=== PATIENT | female | born 1950 | race Caucasian/White ===

== ENCOUNTER → 2022-03-23 12:30 | Outpatient (CLI) | payer MEDICARE, SELFPAY ==
--- NOTE | 2022-03-23 13:29 | DI.ECHO.S_ITS ---
Interpretation Summary The left ventricular cavity is small. The ejection fraction is estimated to be 65-70%. The right ventricle is normal in size and function. The aortic valve is moderately calcified. The aortic valve is trileaflet. There is mildly reduced leaflet mobility. The peak aortic velocity is 2.4 m/sec. The aortic valve mean gradient is 13 mmHg. There is mild aortic stenosis. There is mild to moderate aortic regurgitation. There is mild to moderate tricuspid regurgitation. The right ventricular systolic pressure is estimated to be at least 26 mmHg based on an estimated right atrial pressure of 3 mm Hg. Mild atherosclerotic plaque(s) in the aortic arch. Procedure: A two-dimensional transthoracic echocardiogram with color flow and Doppler was performed. The study quality was technically adequate. There is no prior echocardiogram noted for this patient. The patient was in sinus rhythm with heart rates between 67-72 bpm during the exam. Left Ventricle: The left ventricular cavity is small. There is moderate proximal septal thickening noted. There is no echo evidence for significant left ventricular outflow tract obstruction. There is no thrombus. The ejection fraction is estimated to be 65-70%. There are no focal wall motion abnormalities. Diastolic parameters suggest a relaxation abnormality of the left ventricle, consistent with probable normal filling pressures. Right Ventricle: The right ventricle is normal in size and function. Atria: The left atrium is mildly dilated. Right atrial size is normal. There is no Doppler evidence for an interatrial shunt. Mitral Valve: There is mild mitral annular calcification. There is mild mitral regurgitation. Aortic Valve: The aortic valve is trileaflet. The aortic valve is moderately calcified. There is mildly reduced leaflet mobility. There is mild aortic stenosis. The peak aortic velocity is 2.4 m/sec. The aortic valve mean gradient is 13 mmHg. The calculated aortic valve area is 1.4 cm2. There is mild to moderate aortic regurgitation. Tricuspid Valve: The tricuspid valve is normal in structure and function. There is mild to moderate tricuspid regurgitation. The right ventricular systolic pressure is estimated to be at least 26 mmHg based on an estimated right atrial pressure of 3 mm Hg. Pulmonic Valve: The pulmonic valve leaflets are thin and pliable; valve motion is normal. There is mild pulmonic regurgitation. Great Vessels: The aortic root is normal size. The dimensions of the ascending aorta are normal. Mild atherosclerotic plaque(s) in the aortic arch. The IVC is of normal diameter and collapses greater than 50% with a sniff. This suggests a low right atrial pressure of 3 mm Hg. Pericardium/ Pleura There is no pericardial effusion. There is an anterior echo-free space consistent with a fat pad. There is no pleural effusion. MMode/2D Measurements & Calculations LVIDd: 3.9 cm LVOT diam: 1.8 cm LVIDs: 2.3 cm Ao root diam: 2.9 cm FS: 41.0 % asc Aorta Diam: 3.4 cm EPSS: 0.40 cm Ao Arch Diam (Prox Trans): 3.4 cm IVSd: 1.0 cm LVPWd: 0.98 cm LV juares. diameter/BSA (cm/m^2): 2.1 LV sys. diameter/BSA (cm/m^2): 1.2 LA A2 area: 20.0 cm2 RA long axis: 5.1 cm LA A4 area: 19.3 cm2 RA area: 14.3 cm2 LA length (vol): 5.3 cm RA vol: 33.9 ml LA vol: 61.5 ml RA : 18.1 ml/m2 LA vol index: 32.9 ml/m2 IVC diam: 1.3 cm RVD1 (basal): 3.0 cm RVD2 (mid): 3.1 cm TAPSE: 1.9 cm Doppler Measurements & Calculations Ao V2 max: 239.9 cm/sec LVOT Max Santiago: 131.7 cm/sec Ao V2 mean: 156.5 cm/sec LV V1 max P.9 mmHg Ao max P.1 mmHg LV V1 VTI: 29.9 cm Ao mean P.6 mmHg ALEXIS(I,D): 1.6 cm2 Ao V2 VTI: 47.1 cm ALEXIS(V,D): 1.4 cm2 sev ratio: 0.64 ALEXIS indexed to BSA (cm^2/m^2): 0.86 AI P1/2t: 661.0 msec AI dec slope: 159.9 cm/sec2 MV E max santiago: 63.4 cm/sec TR max santiago: 239.7 cm/sec MV A max santiago: 89.9 cm/sec TR max P.0 mmHg MV E/A: 0.71 PA V2 max: 101.7 cm/sec Med Peak E' Santiago: 4.8 cm/sec PA V2 mean: 72.5 cm/sec E/E' med: 13.2 PA mean P.4 mmHg Lat Peak E' Santiago: 5.6 cm/sec PA pr(Accel): 32.8 mmHg E/E' lat: 11.4 E/e' average: 12.3 MV dec time: 0.20 sec SV(LVOT): 75.5 ml Reading Physician:05:49 PM
== END ==
PROVIDERS: Referring Provider Nurse Practitioner Family; Visit Provider Nurse Practitioner Family
DX: I70.0 Atherosclerosis of aorta (principal); R01.1 Cardiac murmur, unspecified; I08.3 Combined rheumatic disorders of mitral, aortic and tricuspid valves
CPT/HCPCS: 93306